=== PATIENT | male | born 1965 | race Caucasian/White ===

== ENCOUNTER → 2020-09-07 13:16 | Outpatient (CLI) | payer OTHER, SELFPAY ==
--- NOTE | 2020-09-07 13:19 | CT_ITS ---
STUDY: CT FACIAL BONES WITHOUT CONTRAST REASON FOR EXAM: Male, 55 years old. CHRONIC SINUSITIS W/ NASAL POLYPS, LT SIDE WORSE. RADIATION DOSAGE (If Supplied By Facility): CTDIvol = ( 33.06 ) mGy, DLP = ( 776.00 ) mGycm TECHNIQUE: The patient was scanned in a multi detector CT scanner. Sagittal and coronal images were reconstructed. Individualized dose optimization techniques were used for this CT. COMPARISON: None. FINDINGS: Normal soft tissue structures. Normal orbital holt and orbital contents. Normal nasal bones and anterior nasal spine. Normal facial bones. There is no demonstrated fracture. Almost complete opacification of the left maxillary sinus. Mucosal thickening of the right maxillary sinus. There is obliteration of the ostiomeatal cochlea bilaterally due to mucosal hypertrophy. Soft tissue prominence in the left nasal fossa suggestive of a polyposis. Complete obliteration of the ethmoid sinuses bilaterally with thinning of the bony septations. Mucosal thickening of the frontal sinuses. Partial opacification of the right sphenoid sinus. CT/Sinus/Facial Bone IMPRESSION: STALLINGS sinusitis. Soft tissue prominence in the left nasal fossa suggestive of polyposis. Electronically Signed: Ernesto Freire, at 13:43 EST , Service support ,
== END ==
PROVIDERS: PCP Internal Medicine; Referring Provider Otolaryngology; Visit Provider Otolaryngology
DX: J32.9 Chronic sinusitis, unspecified (principal); J33.9 Nasal polyp, unspecified
CPT/HCPCS: 70486

== ENCOUNTER 2021-09-09 05:51 | Day surgery (SDC) | payer OTHER, SELFPAY ==
--- NOTE | 2021-09-09 | ETH_PTH ---
PATIENT: JARETH BRAGG LOC: [facility] U#:[id number] AGE/SX: 56/M ROOM: RE09/09/[address]: Dr. Omi Resendez MD : [id number] BED: DIS: 09/09/2021 SPEC #: [id number] RECD: 09/09/21 10:10 STATUS: AUGUSTINA DENISHA #: [id number] BINTA: 09/09/21 00:[address]: Omi Resendez DEPT: SURGICAL PATHOLOGY RECD BY: Johnny Garcia ENTERED: 09/09/21 12:52 SP TYPE: ETH TISS OTHR DR: Dr. Kristie Trevizo MD Tissues: A - Ethmoid sinus, NOS B - Ethmoid sinus, NOS Procedures: Surgery Specimen Level IV HEADER OPERATION: Functional endoscopic sinus surgery, Navigation PRE-OP DIAGNOSIS: Nasal congestion, polyp of nasal cavity, chronic sinusitis TISSUE SUBMITTED: A ? Left nasal sinus contents and polyp, B ? Right nasal sinus contents MICROSCOPIC DIAGNOSIS A. Left nasal sinus contents and polyp: Fragments of respiratory mucosa with chronic inflammation, mucous and bone. B. Right nasal sinus contents: Fragments of respiratory mucosa with chronic inflammation, mucous and bone. VIN:marquise 09/10/2021 MICROSCOPIC DESCRIPTION Slides are reviewed. GROSS DESCRIPTION A - Received in fixative is one container labeled with the patient's name and designated left nasal sinus contents and polyp. The specimen consists of multiple irregular fragments of pink hemorrhagic mucoid tissue that in aggregate measure 3.5 x 4 x 1 cm. Renovator Machine Operator tissue is submitted in two cassettes. B - Received in fixative is one container labeled with the patient's name and designated right nasal sinus contents. The specimen consists of multiple fragments of hemorrhagic mucoid tissue that in aggregate measure 3 x 1.5 x 0.5 cm. Also present in the container is a piece of polypoid mucoid tissue measuring 2 x 2 x 1 cm. The entire specimen is submitted in two cassettes. / VIN:marquise 09/09/21 TC:3 CPT: 31006 x2
--- NOTE | 2021-09-09 06:02 | EKG12_ITS ---
Test Reason : PREOP Blood Pressure : / mmHG Vent. Rate : 062 BPM Atrial Rate : 062 BPM P-R Int : 116 ms QRS Dur : 090 ms QT Int : 444 ms P-R-T Axes : 046 045 056 degrees QTc Int : 450 ms Normal sinus rhythm Normal ECG Confirmed by TEQUILA ALBERTO, MICHAEL ([id number]), editor index ANDREW DAWSON ([id number]) on 09/13/2021 7:53:03 AM Referred By: DEVAN Confirmed By:MICHAEL MANDEL MD
[2021-09-09] MEDS: Lactated Ringers 1,000 ML 100 ML IV (06:10)
[2021-09-09 06:34] VITALS: BP 132/81; PULSE 62; RESP 16; TEMP 36.7; O2SAT 96; BMI 33.5
[2021-09-09] MEDS: Oxymetazoline 0.05% 1 SPRAY SPRAY.BTL 2 SPRAY NASAL (06:40)
[2021-09-09 06:56] LABS: Anion Gap 8 (5-15); BUN 19 mg/dL (7-18); BUN/Creat Ratio 21.5 RATIO (10-20); Calcium,Total 8.7 mg/dL (8.5-10.1); Chloride 101 mmol/L (98-107); Creatinine, Serum 0.88 mg/dL (0.70-1.30); EST Glomerular Filtration Rate 95 mL/min (>60); Est Glom Filt Rate - Afr Amer 115 mL/min (>60); Estimated Creatinine Clearance 95.96 ml/min; Glucose 115 mg/dL (74-106); Potassium 3.6 mmol/L (3.5-5.1); Sodium Level 137 mmol/L (136-145)
[2021-09-09 07:00] LABS: Hematocrit 44.9 % (40-54); Hemoglobin 15.2 g/dL (13.0-16.5); Mean Corp Hgb Conc 33.9 g/dL (32-36); Mean Corpuscular Hgb 32.3 pg (27.0-32.0); Mean Corpuscular Volume 95.3 fL (80-94); Mean Platelet Vol. 9.9 fl (6.2-12.0); Platelet Count 289 K/mm3 (150-450); RBC Distribution Width CV 13.1 % (11.6-14.6); RBC Distribution Width SD 45.9 fl (35.1-43.9); Red Blood Count 4.71 M/mm3 (4.6-6.2); White Blood Count 6.5 K/mm3 (4.4-11.0)
[2021-09-09 07:02] LABS: International Normalized Ratio 0.9; Prothrombin Time (Protime)PT. 11.4 SECONDS (11.7-14.9)
[2021-09-09 07:04] LABS: Partial Thromboplast Time 26.1 Seconds (24.1-36.2)
--- NOTE | 2021-09-09 07:29 | PCM.DC.SUM ---
Providers Primary Care Physician: Dr. Kristie Trevizo MD Reason For Visit: FESS NAVIGATION Medications at Discharge Home Medications albuterol sulfate 1 inh INHALATION Q6H PRN 09/06/21 atorvastatin 40 mg PO QHS 09/06/21 chlorthalidone 25 mg PO DAILY 09/06/21 fluticasone propion-salmeterol [Wixela Inhub] 1 inh INHALATION QHS 09/06/21 Weight / BMI Weight Weight: 103 kg Body Mass Index (BMI) 33.5 ABG / Lab / Microbiology Data Result Diagrams: 09/09/21 06:20 09/09/21 06:20 Laboratory: Laboratory Results - last 24 hr 09/09/21 06:20: Sodium 137, Potassium 3.6, Chloride 101, Carbon Dioxide 28.0, Anion Gap 8, BUN 19 H, Creatinine 0.88, Estim Creat Clear Calc 95.96, Est GFR (MDRD) Af Amer 115, Est GFR (MDRD) Non-Af 95, BUN/Creatinine Ratio 21.5 H, Glucose 115 H, Calcium 8.7 09/09/21 06:20: WBC 6.5, RBC 4.71, Hgb 15.2, Hct 44.9, MCV 95.3 H, MCH 32.3 H, MCHC 33.9, RDW Std Deviation 45.9 H, RDW Coeff of [place] 13.1, Plt Count 289, MPV 9.9 09/09/21 06:20: PT 11.4 L, INR 0.9, APTT 26.1 D/C Instructions Discharge Diet: No restrictions Additional Dressing/Incision Instructions: No noseblowing. Start irrigation on 09/10/21. Irrigate 4x/day. Please Follow Up With: Omi Resendez MD When: next week Meaningful Use Info Meaningful Use Diagnoses (Choose all that apply): None applicable Discharge Plan Admission Attending Provider: Omi Resendez Primary Care Provider: Kristie Trevizo Discharge Orders/Prescriptions Prescriptions: No Action atorvastatin 40 mg Tablet 40 mg PO QHS RF: 0 fluticasone propion-salmeterol [Wixela Inhub] 250-50 mcg/dose Blister With Device 1 inh INHALATION QHS RF: 0 chlorthalidone 25 mg Tablet 25 mg PO DAILY RF: 0 albuterol sulfate 90 mcg/actuation Hfa Aerosol Inhaler 1 inh INHALATION Q6H PRN (Reason: SOB) RF: 0
[2021-09-09] MEDS: Lidocaine 1% /Epi 1:100 (20ml) 20 ML Vial (07:59)
--- NOTE | 2021-09-09 08:45 | OP.PCM_ITS ---
Report of Operation Date of Procedure: 09/09/21 Pre-Operative Diagnosis: chronic sinusitis Post-Operative Diagnosis: same Surgery/Procedure Performed:: Bilateral total ethmoidectomy Bilateral maxillary antrostomy Surgeon: Omi Resendez Type of Anesthesia: General Anesthesiologist: Franklin Whitehead Estimated Blood Loss (mL): minimal Description of Procedure: The patient was taken to the operating room on 09/09/2021. The patient was placed in the supine position on the operating table. The patient was given sufficient general endotracheal anesthesia. The head of bed was elevated 30 degrees. The navigation system was placed and verified per protocol and found to be accurate. 0 and 30 degrees rigid nasal endoscopes were used throughout the entire case. The middle turbinate uncinate process and polyps were injected with 1% lidocaine with epinephrine bilaterally. The right middle turbinate was medialized with a [place] elevator. Polyp was removed from the middle meatus using a sinus shaver. A ball-tipped sinus seeker was placed into the patient's maxillary sinus. The uncinate process was taken down using a microdebrider. Next, the ethmoid bulla was opened with a small curette. Anterior and posterior ethmoidectomy were then carried out using curette, sinus shaver and 45 degree [place] forceps. Ethmoid cells were verified for relation to the skull base and orbit prior to being entered with the navigation system. I then placed Afrin pledgets into the sinonasal cavity. Next attention was turned to the left side. The middle turbinate was medialized with a [place] elevator. A large polyp was removed from the middle meatus using a sinus shaver. The uncinate process was taken down using a sinus shaver. In doing so, the maxillary antrostomy was created. The ethmoid bulla was opened with a small curette. Anterior posterior ethmoidectomy were then carried out using a sinus shaver curette and [place] forceps. Ethmoid cells were verified for relation to the skull base and orbit prior to being entered with the navigation system. Hemostasis was then achieved using Afrin pledgets and sparing suction cautery. The pledgets were then removed bilaterally and Tomi powder was applied bilaterally for absolute hemostasis. The procedure was then terminated. The patient was then awoken and brought to the recovery room in stable condition blood loss less than 30 cc, replacement none. Sponge, needle, instrument count were correct at the end of the procedure.
[2021-09-09 09:01] VITALS: BP 131/94; BP 132/81; PULSE 78; RESP 16; TEMP 36.1; O2SAT 94
[2021-09-09 09:16] VITALS: BP 132/81; BP 155/97; PULSE 66; RESP 16; O2SAT 95
[2021-09-09 09:26] VITALS: BP 132/81; BP 141/96; PULSE 68; RESP 16; TEMP 36.1; O2SAT 97
[2021-09-09 10:01] VITALS: BP 132/81; BP 152/96; PULSE 61; RESP 16; TEMP 36.7; O2SAT 98
== END 2021-09-09 10:03 | disposition home or self-care (01) ==
LOC: SDC 05:54 → AC 05:55
PROVIDERS: Anesthesiology; PCP Internal Medicine; Visit Provider Otolaryngology
PROC: (CPT 31255; principal; 2021-09-09 07:00)
DX: J33.0 Polyp of nasal cavity (principal); J32.9 Chronic sinusitis, unspecified; Z79.51 Long term (current) use of inhaled steroids; E78.00 Pure hypercholesterolemia, unspecified; Z87.891 Personal history of nicotine dependence
CPT/HCPCS: 31255; 31267; 80048; 85027; 85610; 85730; 88305; 93005; J7120; J2405